=== PATIENT | female | born 1975 | race Caucasian/White ===

== ENCOUNTER 2025-04-29 05:19 | Day surgery (SDC) | payer BC, OTHER ==
[2025-04-29] MEDS ORDERED: Propofol 200 MG/20 ML SDV IV ONE (05:20)
[2025-04-29] MEDS ORDERED: Lactated Ringers 1,000 ML IV ONE (05:20)
[2025-04-29] MEDS: Lactated Ringers 1,000 ML IV SCH (05:53)
[2025-04-29] MEDS ORDERED: Propofol 200 MG/20 ML SDV ONE (05:55)
== END 2025-04-29 08:00 | disposition home or self-care (01) ==
LOC: DL.ENDO 05:19
PROVIDERS: ATTEND Internal Medicine Gastroenterology
DX: Z12.11 Encounter for screening for malignant neoplasm of colon (principal); K63.5 Polyp of colon; K64.4 Residual hemorrhoidal skin tags; E66.09 Other obesity due to excess calories; E73.9 Lactose intolerance, unspecified; Z88.8 Allergy status to other drugs, medicaments and biological substances; Z88.5 Allergy status to narcotic agent; Z68.37 Body mass index [BMI] 37.0-37.9, adult
CPT/HCPCS: 45385; 81025; J2704; J7120